=== PATIENT | male | born 1965 | race Caucasian/White ===

== ENCOUNTER 2024-11-01 11:09 | Inpatient (IN) | payer MEDICARE, OTHER ==
[2024-11-01] MEDS ORDERED: Iopamidol-370 76% 500 ML MDV (1 ML CHARGE) ONE (11:42)
[2024-11-01 11:43] LABS: #Basophils 0.04 10x3/uL (0.0-0.2); #Eosinophils 0.18 10x3/uL (0.0-0.7); #Monocytes 1.05 10x3/uL (0.11-0.59); #Neutrophils 8.30 10x3/uL (1.40-6.50); %Basophils 0.3 % (0.0-1.0); %Eosinophils 1.4 % (0.0-10.0); %Lymphocytes 25.5 % (21.0-51.0); %Monocytes 8.1 % (0.0-10.0); %Neutrophils 64.3 % (42.0-75.0); Hematocrit 43.1 % (42.0-52.0); Hemoglobin 14.2 g/dL (14.0-18.0); Mean Corpuscular Hemoglobin 29.6 pg (27.0-31.0); Mean Corpuscular Volume 90.0 fL (78.0-98.0); Platelet Count 294 10x3/uL (130-400); Red Blood Cell (RBC) Count 4.79 mill/uL (4.70-6.10); White Blood Cell (WBC) Count 12.91 10x3/uL (4.8-10.8)
[2024-11-01] MEDS ORDERED: Albuterol 2.5 MG (0.5 mL) NEB ONE (11:49)
[2024-11-01 12:03] LABS: ALT (SGPT) 19 U/L (Less than 45); AST (SGOT) 18 U/L (11-34); Albumin 3.8 g/dL (3.1-4.5); Alkaline Phosphatase 129 U/L (40-110); Anion Gap 16 mmol/L (10-20); BUN (Urea Nitrogen) 25 mg/dL (8.4-25.7); Bilirubin, Total 0.3 mg/dL (0.3-1.2); Calc. Creatinine Clearance 0 mL/min (70-130); Calcium 9.0 mg/dL (7.8-10.44); Carbon Dioxide 23 mmol/L (22-29); Chloride 108 mmol/L (98-107); Globulin 2.7 g/dL (2.4-3.5); Glucose 97 mg/dL (70-105); Potassium 4.2 mmol/L (3.5-5.1); Sodium 143 mmol/L (136-145)
[2024-11-01] MEDS ORDERED: Enoxaparin 30 MG (0.3 mL) SYRINGE ONE (13:13)
[2024-11-01] MEDS ORDERED: Enoxaparin 100 MG (1 mL) SYRINGE ONE (13:16)
[2024-11-01] MEDS ORDERED: Nitroglycerin 0.4 MG TAB (25 Tab Bottle) SL PRN (13:36)
[2024-11-01] MEDS ORDERED: Nitroglycerin 2% Ointment 1 INCH/1 GM Packet ONE (15:06)
[2024-11-01] MEDS: Nitroglycerin 2% Ointment 1 INCH/1 GM Packet TOP SCH ×2 (15:14→20:53)
[2024-11-01] MEDS: Gabapentin 400 MG CAP PO SCH (22:15)
[2024-11-01] MEDS: Acetaminophen 325 MG TAB PO PRN (22:15)
[2024-11-02 04:38] LABS: #Basophils 0.03 10x3/uL (0.0-0.2); #Eosinophils Less than 0.03 10x3/uL (0.0-0.7); #Monocytes 0.96 10x3/uL (0.11-0.59); #Neutrophils 11.43 10x3/uL (1.40-6.50); %Basophils 0.2 % (0.0-1.0); %Eosinophils 0.1 % (0.0-10.0); %Lymphocytes 11.8 % (21.0-51.0); %Monocytes 6.8 % (0.0-10.0); %Neutrophils 80.5 % (42.0-75.0); Hematocrit 42.3 % (42.0-52.0); Hemoglobin 13.3 g/dL (14.0-18.0); Mean Corpuscular Hemoglobin 29.5 pg (27.0-31.0); Mean Corpuscular Volume 93.8 fL (78.0-98.0); Platelet Count 281 10x3/uL (130-400); Red Blood Cell (RBC) Count 4.51 mill/uL (4.70-6.10); White Blood Cell (WBC) Count 14.18 10x3/uL (4.8-10.8)
[2024-11-02 04:59] LABS: Anion Gap 13 mmol/L (10-20); BUN (Urea Nitrogen) 27 mg/dL (8.4-25.7); Calc. Creatinine Clearance 59 mL/min (70-130); Calcium 9.2 mg/dL (7.8-10.44); Carbon Dioxide 25 mmol/L (22-29); Cardiac Risk 3.5 (Less than 4.5); Chloride 109 mmol/L (98-107); Cholesterol 174 mg/dl (< 200 Desired); Glucose 111 mg/dL (70-105); HDL Cholesterol 50 mg/dL (>60 Neg Risk); LDL Cholesterol, Calculated 88 mg/dL; Potassium 4.7 mmol/L (3.5-5.1); Sodium 142 mmol/L (136-145); Triglycerides 180 mg/dL (Less than 150)
[2024-11-02] MEDS: Aspirin 81 mg Enteric Coated Tablet PO SCH (05:48)
[2024-11-02] MEDS ORDERED: Communication Order-Pharmacy FS SCH (06:00)
[2024-11-02] MEDS ORDERED: PHENYLEPHRINE-NS 100 MCG/ML 10 ML SYRINGE ONE (06:15)
[2024-11-02] MEDS ORDERED: hydrALAZINE 20 MG/ML VIAL ONE (06:15)
[2024-11-02] MEDS ORDERED: Heparin 10,000 UNITS/ 10 ML VIAL ONE (06:15)
[2024-11-02] MEDS ORDERED: Adenosine 6 mg (2 mL) VIAL ONE (06:15)
[2024-11-02] MEDS ORDERED: Lidocaine 1% (PF) 30 ML VIAL ONE (06:15)
[2024-11-02] MEDS ORDERED: Nitroglycerin 50 MG/250 ML BOT 0 ML ONE (06:15)
[2024-11-02] MEDS ORDERED: EPINEPHrine 1 MG/10 ML Abboject SYRINGE ONE (06:15)
[2024-11-02] MEDS ORDERED: Metoprolol Tartrate 5 MG (5 mL) VIAL ONE ×2 (07:22→07:55)
[2024-11-02] MEDS ORDERED: Nitroglycerin 2% Ointment 1 INCH/1 GM Packet ONE (07:55)
[2024-11-02] MEDS ORDERED: Nitroglycerin 0.4 MG TAB (25 Tab Bottle) SL PRN (08:13)
[2024-11-02] MEDS ORDERED: Iopamidol 370 76% 100 ML VIAL ONE (10:16)
[2024-11-02] MEDS: HYDROcodone/Acetaminophen 5/325 mg Tablet PO PRN (12:28)
[2024-11-02] MEDS: Melatonin 3 MG TAB PO PRN (20:32)
[2024-11-02] MEDS: Gabapentin 300 MG CAP PO SCH (20:32)
[2024-11-03 04:43] LABS: #Basophils 0.07 10x3/uL (0.0-0.2); #Eosinophils 0.15 10x3/uL (0.0-0.7); #Monocytes 0.86 10x3/uL (0.11-0.59); #Neutrophils 9.36 10x3/uL (1.40-6.50); %Basophils 0.5 % (0.0-1.0); %Eosinophils 1.1 % (0.0-10.0); %Lymphocytes 23.3 % (21.0-51.0); %Monocytes 6.3 % (0.0-10.0); %Neutrophils 68.4 % (42.0-75.0); Hematocrit 43.9 % (42.0-52.0); Hemoglobin 13.6 g/dL (14.0-18.0); Mean Corpuscular Hemoglobin 29.1 pg (27.0-31.0); Mean Corpuscular Volume 94.0 fL (78.0-98.0); Platelet Count 284 10x3/uL (130-400); Red Blood Cell (RBC) Count 4.67 mill/uL (4.70-6.10); White Blood Cell (WBC) Count 13.69 10x3/uL (4.8-10.8)
[2024-11-03 05:07] LABS: Anion Gap 11 mmol/L (10-20); BUN (Urea Nitrogen) 24 mg/dL (8.4-25.7); Calc. Creatinine Clearance 68 mL/min (70-130); Calcium 8.6 mg/dL (7.8-10.44); Carbon Dioxide 26 mmol/L (22-29); Chloride 107 mmol/L (98-107); Glucose 95 mg/dL (70-105); Potassium 4.6 mmol/L (3.5-5.1); Sodium 139 mmol/L (136-145)
[2024-11-03] MEDS: Enoxaparin 40 MG (0.4 mL) SYRINGE SC SCH (14:10)
[2024-11-03] MEDS: HYDROcodone/Acetaminophen 5/325 mg Tablet PO PRN (21:20)
[2024-11-03] MEDS: Senokot S 8.6-50 MG TAB PO PRN (21:21)
[2024-11-04 04:31] LABS: #Basophils 0.05 10x3/uL (0.0-0.2); #Eosinophils 0.18 10x3/uL (0.0-0.7); #Monocytes 1.10 10x3/uL (0.11-0.59); #Neutrophils 6.28 10x3/uL (1.40-6.50); %Basophils 0.5 % (0.0-1.0); %Eosinophils 1.6 % (0.0-10.0); %Lymphocytes 30.4 % (21.0-51.0); %Monocytes 10.0 % (0.0-10.0); %Neutrophils 57.0 % (42.0-75.0); Hematocrit 43.7 % (42.0-52.0); Hemoglobin 13.5 g/dL (14.0-18.0); Mean Corpuscular Hemoglobin 29.2 pg (27.0-31.0); Mean Corpuscular Volume 94.6 fL (78.0-98.0); Platelet Count 262 10x3/uL (130-400); Red Blood Cell (RBC) Count 4.62 mill/uL (4.70-6.10); White Blood Cell (WBC) Count 11.01 10x3/uL (4.8-10.8)
[2024-11-04 04:48] LABS: Anion Gap 10 mmol/L (10-20); BUN (Urea Nitrogen) 26 mg/dL (8.4-25.7); Calc. Creatinine Clearance 66 mL/min (70-130); Calcium 8.6 mg/dL (7.8-10.44); Carbon Dioxide 26 mmol/L (22-29); Chloride 108 mmol/L (98-107); Glucose 97 mg/dL (70-105); Potassium 4.4 mmol/L (3.5-5.1); Sodium 140 mmol/L (136-145)
[2024-11-04] MEDS ORDERED: PHENYLEPHRINE-NS 100 MCG/ML 10 ML SYRINGE ONE ×4 (06:35→12:17)
[2024-11-04] MEDS ORDERED: Heparin 10,000 UNITS/1 ML VIAL 30,000 UNITS in Sodium Chloride 0.9% 1,000 ML FS SCH (06:45)
[2024-11-04] MEDS ORDERED: PROPOFOL 20 ML ONE (06:45)
[2024-11-04] MEDS ORDERED: Lidocaine 1% PF 5 ML VIAL ONE (06:46)
[2024-11-04] MEDS ORDERED: Rocuronium Bromide 10 MG/ML (10ML VIAL) ONE ×3 (06:51→10:42)
[2024-11-04] MEDS ORDERED: CEFAZOLIN 2 GM VIAL ONE (06:56)
[2024-11-04] MEDS ORDERED: Cardioplegic Soln 1,000 ML BAG ONE (07:30)
[2024-11-04] MEDS ORDERED: Thrombin 5000 UNITS/5 ML VIAL ONE (07:30)
[2024-11-04] MEDS ORDERED: Sodium Bicarb 50 MEQ/50 ML Abboject 8.4% SYRINGE ONE (07:30)
[2024-11-04] MEDS ORDERED: Calcium Chloride 1 GM/10 ML Abboject SYRINGE ONE ×2 (07:30→11:16)
[2024-11-04] MEDS ORDERED: Heparin 30,000 units/30 ml VIAL ONE (07:30)
[2024-11-04] MEDS ORDERED: Heparin 5,000 UNITS/ML VIAL ONE (07:30)
[2024-11-04] MEDS ORDERED: NOREPINEPHRINE 8 MG/250 ML-D5W 250 ML ONE (07:55)
[2024-11-04] MEDS ORDERED: Heparin 10,000 UNITS/ 10 ML VIAL ONE (08:11)
[2024-11-04] MEDS ORDERED: CEFAZOLIN 1 GM VIAL ONE (11:24)
[2024-11-04] MEDS ORDERED: NOREPINEPHRINE 8 MG/250 ML-D5W 250 ML IVPB PRN (11:58)
[2024-11-04] MEDS ORDERED: Bisacodyl 10 MG SUPP PR PRN (11:58)
[2024-11-04] MEDS ORDERED: Guaifenesin DM 100-10/5 ML UDCUP PO PRN (11:58)
[2024-11-04] MEDS ORDERED: Mag-Al 1200 mg/1200 mg/30 ML UDCUP PO PRN (11:58)
[2024-11-04] MEDS ORDERED: Potassium Chloride 20 MEQ (100 mL) BAG IVPB PRN (11:58)
[2024-11-04] MEDS ORDERED: Phenylephrine 40 MG/NS 250 ML 250 ML IVPB PRN (11:58)
[2024-11-04] MEDS ORDERED: niCARdipine 25 MG in Sodium Chloride 0.9% 250 ML 250 ML IVPB PRN (11:58)
[2024-11-04] MEDS ORDERED: Magnesium 2 GM/50 ML(in water) 2 GM in Premix 1 BAG IVPB SCH (12:00)
[2024-11-04] MEDS ORDERED: Electrolyte Replacement Protocol 1 EACH FS SCH (12:15)
[2024-11-04] MEDS ORDERED: INSULIN REGULAR IN 0.9 % NACL 100 UNITS in Premix 1 BAG IVPB SCH (12:30)
[2024-11-04] MEDS ORDERED: Glucagon 1 MG/ML KIT SC PRN (12:30)
[2024-11-04 12:33] LABS: Actual Bicarbonate (HCO3a) 23.8 mEq/L (22-28); Base Excess (BEa) -4.4 mEq/L (-2.0 to +3.0); CO2 Tension 58.5 mmHg (35.0-45.0); Calcium, Ionized (arterial) 1.32 mmol/L (1.12-1.30); Hematocrit-ABG 37 % (42.0-52.0); Hemoglobin (Hb) 12.6 g/dL (14.0-18.0); O2 Tension (PaO2), arterial 93.2 mmHg (80.0-100.0); Potassium - ABG Lab 4.94 mmol/L (3.70-5.30); pH, Arterial 7.228 (7.35-7.45)
[2024-11-04 12:35] LABS: Puncture Site Arterial Line
[2024-11-04 12:36] LABS: ALV-art Gradient 118.875 mmHg (0-20)
[2024-11-04] MEDS: Post-Op Insulin Drip Protocol IVPB ONE (12:40)
[2024-11-04] MEDS: NS 0.9% w/ 20 MEQ KCL 1,000 ML IV SCH (12:49)
[2024-11-04 12:50] LABS: Hematocrit 37.6 % (42.0-52.0); Hemoglobin 11.4 g/dL (14.0-18.0); Mean Corpuscular Hemoglobin 29.5 pg (27.0-31.0); Mean Corpuscular Volume 97.4 fL (78.0-98.0); Platelet Count 208 10x3/uL (130-400); Red Blood Cell (RBC) Count 3.86 mill/uL (4.70-6.10); White Blood Cell (WBC) Count 26.92 10x3/uL (4.8-10.8)
[2024-11-04] MEDS: Magnesium 2 GM/50 ML(in water) 2 GM in Premix 1 BAG IVPB SCH (12:50)
[2024-11-04] MEDS: Albumin 5% 12.5 GM (250 mL) BOT IVPB PRN ×2 (12:51→13:11)
[2024-11-04 12:58] LABS: INR-International Normal Ratio 1.2; Prothrombin Time 15.3 sec (12.0-14.7)
[2024-11-04 12:59] LABS: PTT 47.0 sec (22.9-36.1)
[2024-11-04 13:00] LABS: Anion Gap 11 mmol/L (10-20); BUN (Urea Nitrogen) 24 mg/dL (8.4-25.7); Calc. Creatinine Clearance 63 mL/min (70-130); Calcium 8.7 mg/dL (7.8-10.44); Carbon Dioxide 20 mmol/L (22-29); Chloride 114 mmol/L (98-107); Glucose 141 mg/dL (70-105); Potassium 5.1 mmol/L (3.5-5.1); Sodium 140 mmol/L (136-145)
[2024-11-04 13:14] LABS: Platelet Adequacy Comment Platelets Normal
[2024-11-04 15:19] LABS: Actual Bicarbonate (HCO3a) 20.4 mEq/L (22-28); Base Excess (BEa) -4.7 mEq/L (-2.0 to +3.0); CO2 Tension 37.8 mmHg (35.0-45.0); Calcium, Ionized (arterial) 1.19 mmol/L (1.12-1.30); Hematocrit-ABG 33 % (42.0-52.0); Hemoglobin (Hb) 11.1 g/dL (14.0-18.0); O2 Tension (PaO2), arterial 106.4 mmHg (80.0-100.0); Potassium - ABG Lab 5.35 mmol/L (3.70-5.30); pH, Arterial 7.350 (7.35-7.45)
[2024-11-04 15:30] LABS: ALV-art Gradient 131.550 mmHg (0-20); Puncture Site Arterial Line
[2024-11-04 17:57] LABS: Hematocrit 34.2 % (42.0-52.0); Hemoglobin 10.3 g/dL (14.0-18.0)
[2024-11-04 18:09] LABS: Potassium 5.5 mmol/L (3.5-5.1)
[2024-11-04 18:26] LABS: Hematocrit 34.7 % (42.0-52.0); Hemoglobin 10.5 g/dL (14.0-18.0); Platelet Count 153 10x3/uL (130-400)
[2024-11-04] MEDS: Famotidine/PF 20 mg/2ml Vial SLOW IVP SCH (20:05)
[2024-11-04] MEDS: Transdermal Patch Removal TOP SCH (20:21)
[2024-11-05 04:17] LABS: #Basophils Less than 0.03 10x3/uL (0.0-0.2); #Eosinophils 0.06 10x3/uL (0.0-0.7); #Monocytes 1.20 10x3/uL (0.11-0.59); #Neutrophils 11.23 10x3/uL (1.40-6.50); %Basophils 0.1 % (0.0-1.0); %Eosinophils 0.4 % (0.0-10.0); %Lymphocytes 10.5 % (21.0-51.0); %Monocytes 8.5 % (0.0-10.0); %Neutrophils 80.0 % (42.0-75.0); Hematocrit 34.5 % (42.0-52.0); Hemoglobin 10.6 g/dL (14.0-18.0); Mean Corpuscular Hemoglobin 30.0 pg (27.0-31.0); Mean Corpuscular Volume 97.7 fL (78.0-98.0); Platelet Count 164 10x3/uL (130-400); Red Blood Cell (RBC) Count 3.53 mill/uL (4.70-6.10); White Blood Cell (WBC) Count 14.06 10x3/uL (4.8-10.8)
[2024-11-05 04:32] LABS: Anion Gap 12 mmol/L (10-20); BUN (Urea Nitrogen) 21 mg/dL (8.4-25.7); Calc. Creatinine Clearance 66 mL/min (70-130); Calcium 8.1 mg/dL (7.8-10.44); Carbon Dioxide 22 mmol/L (22-29); Chloride 109 mmol/L (98-107); Glucose 110 mg/dL (70-105); Magnesium 2.3 mg/dL (1.6-2.6); Potassium 4.7 mmol/L (3.5-5.1); Sodium 138 mmol/L (136-145)
[2024-11-05] MEDS: Aspirin 325 MG TAB PO SCH (08:11)
[2024-11-05] MEDS: Gabapentin 300 MG CAP PO SCH (08:11)
[2024-11-05] MEDS: Magnesium 2 GM/50 ML(in water) 2 GM in Premix 1 BAG IVPB SCH (08:12)
[2024-11-05] MEDS: Heparin 5,000 UNITS/ML VIAL SC SCH (08:12)
[2024-11-05] MEDS: Senokot S 8.6-50 MG TAB PO SCH (08:13)
[2024-11-05] MEDS: Losartan 25 MG TAB PO SCH (10:37)
[2024-11-05] MEDS ORDERED: HYDROcodone/Acetaminophen 5/325 mg Tablet PO PRN (10:58)
[2024-11-05] MEDS ORDERED: Insulin Glargine 30 UNITS/0.3 ML VIAL SC PRN (12:25)
[2024-11-05] MEDS ORDERED: Artificial Tear Ophth Sol 15 ML BOT EA EYE PRN (13:54)
[2024-11-05] MEDS ORDERED: Mineral Oil ENEMA PR PRN (13:54)
[2024-11-05] MEDS: HYDROcodone/Acetaminophen 5/325 mg Tablet PO PRN (16:43)
[2024-11-06 05:01] LABS: Magnesium 2.3 mg/dL (1.6-2.6)
[2024-11-06] MEDS: Amiodarone 150 MG, Admixture Fee 1 EACH in Dextrose 5% in Water 100 ML IVPB SCH (05:54)
[2024-11-06 07:59] LABS: Hematocrit 32.5 % (42.0-52.0); Hemoglobin 10.1 g/dL (14.0-18.0); Mean Corpuscular Hemoglobin 29.9 pg (27.0-31.0); Mean Corpuscular Volume 96.2 fL (78.0-98.0); Platelet Count 159 10x3/uL (130-400); Red Blood Cell (RBC) Count 3.38 mill/uL (4.70-6.10); White Blood Cell (WBC) Count 16.52 10x3/uL (4.8-10.8)
[2024-11-06 08:13] LABS: Anion Gap 7 mmol/L (10-20); BUN (Urea Nitrogen) 25 mg/dL (8.4-25.7); Calc. Creatinine Clearance 78 mL/min (70-130); Calcium 8.1 mg/dL (7.8-10.44); Carbon Dioxide 21 mmol/L (22-29); Chloride 113 mmol/L (98-107); Glucose 139 mg/dL (70-105); Potassium 4.4 mmol/L (3.5-5.1); Sodium 137 mmol/L (136-145)
[2024-11-06] MEDS: Magnesium 2 GM/50 ML(in water) 2 GM in Premix 1 BAG IVPB SCH (08:48)
[2024-11-06] MEDS: Metoprolol Succinate XL 50 MG ER.TAB PO SCH (08:49)
[2024-11-06] MEDS ORDERED: Metoprolol Succinate XL 50 MG ER.TAB PO SCH (09:00)
[2024-11-06] MEDS ORDERED: Furosemide 20 MG TAB PO SCH (10:03)
[2024-11-06 12:30] LABS: Anion Gap 12 mmol/L (10-20); BUN (Urea Nitrogen) 23 mg/dL (8.4-25.7); Calc. Creatinine Clearance 65 mL/min (70-130); Calcium 8.6 mg/dL (7.8-10.44); Carbon Dioxide 23 mmol/L (22-29); Chloride 110 mmol/L (98-107); Glucose 143 mg/dL (70-105); Magnesium 3.2 mg/dL (1.6-2.6); Potassium 5.0 mmol/L (3.5-5.1); Sodium 140 mmol/L (136-145)
[2024-11-06] MEDS: Amiodarone 200 MG TAB PO SCH (21:20)
[2024-11-06] MEDS: Dextrose 50% Abboject 50 ML SYRINGE SLOW IVP PRN (22:03)
[2024-11-07 04:27] LABS: Hematocrit 31.3 % (42.0-52.0); Hemoglobin 9.4 g/dL (14.0-18.0); Mean Corpuscular Hemoglobin 29.6 pg (27.0-31.0); Mean Corpuscular Volume 98.4 fL (78.0-98.0); Platelet Count 146 10x3/uL (130-400); Red Blood Cell (RBC) Count 3.18 mill/uL (4.70-6.10); White Blood Cell (WBC) Count 19.28 10x3/uL (4.8-10.8)
[2024-11-07 07:54] LABS: Anion Gap 17 mmol/L (10-20); BUN (Urea Nitrogen) 40 mg/dL (8.4-25.7); Calc. Creatinine Clearance 28 mL/min (70-130); Calcium 7.8 mg/dL (7.8-10.44); Carbon Dioxide 19 mmol/L (22-29); Chloride 105 mmol/L (98-107); Glucose 99 mg/dL (70-105); Magnesium 3.1 mg/dL (1.6-2.6); Potassium 6.8 mmol/L (3.5-5.1); Sodium 134 mmol/L (136-145)
[2024-11-07 08:22] LABS: ALT (SGPT) 8646 U/L (Less than 45)
[2024-11-07 08:29] LABS: AST (SGOT) Greater than 4001 U/L (11-34)
[2024-11-07 08:30] LABS: Albumin 2.4 g/dL (3.1-4.5); Alkaline Phosphatase 171 U/L (40-110); Bilirubin, Direct 0.7 mg/dL (0.1-0.3); Bilirubin, Total 1.1 mg/dL (0.3-1.2)
[2024-11-07] MEDS ORDERED: Amoxicillin/Potassium Clav 500 MG TAB PO SCH (09:00)
[2024-11-07] MEDS: Bisacodyl 10 MG SUPP PR SCH (10:10)
[2024-11-07] MEDS: Sodium Polystyrene Sulfonate 15 GM (60 mL) BOT PO SCH (10:20)
[2024-11-07] MEDS: Dextrose 50% Abboject 50 ML SYRINGE SLOW IVP SCH (10:43)
[2024-11-07] MEDS: Ondansetron PF 4 MG/2 ML Vial IVP PRN (10:52)
[2024-11-07 14:09] LABS: #Basophils 0.03 10x3/uL (0.0-0.2); #Eosinophils 0.03 10x3/uL (0.0-0.7); #Monocytes 0.67 10x3/uL (0.11-0.59); #Neutrophils 10.83 10x3/uL (1.40-6.50); %Basophils 0.2 % (0.0-1.0); %Eosinophils 0.2 % (0.0-10.0); %Lymphocytes 13.3 % (21.0-51.0); %Monocytes 4.9 % (0.0-10.0); %Neutrophils 79.9 % (42.0-75.0); Hematocrit 30.2 % (42.0-52.0); Hemoglobin 9.2 g/dL (14.0-18.0); Mean Corpuscular Hemoglobin 29.8 pg (27.0-31.0); Mean Corpuscular Volume 97.7 fL (78.0-98.0); Platelet Count 134 10x3/uL (130-400); Red Blood Cell (RBC) Count 3.09 mill/uL (4.70-6.10); White Blood Cell (WBC) Count 13.58 10x3/uL (4.8-10.8)
[2024-11-07 14:34] LABS: Albumin 2.5 g/dL (3.1-4.5); Alkaline Phosphatase 227 U/L (40-110); Anion Gap 17 mmol/L (10-20); BUN (Urea Nitrogen) 46 mg/dL (8.4-25.7); Bilirubin, Total 1.0 mg/dL (0.3-1.2); Calc. Creatinine Clearance 22 mL/min (70-130); Calcium 7.5 mg/dL (7.8-10.44); Carbon Dioxide 19 mmol/L (22-29); Chloride 104 mmol/L (98-107); Globulin 2.9 g/dL (2.4-3.5); Glucose 138 mg/dL (70-105); Magnesium 3.3 mg/dL (1.6-2.6); Potassium 5.5 mmol/L (3.5-5.1); Sodium 134 mmol/L (136-145)
[2024-11-07 15:38] LABS: Bacteria/HPF 4+ HPF (None Seen); Glucose, Urine (Dipstick) 50 mg/dL (Negative); Leukocyte 500 Leu/uL (Negative); Protein, Urine (Dipstick) 100 mg/dL (Neg-Trace); RBC/HPF Greater than 50 HPF (0-3); Specific Gravity, Urine 1.023 (1.002-1.036); WBC/HPF Greater than 50 HPF (0-3)
[2024-11-07] MEDS: Albumin 25% 25 GM (100 mL) BOT IVPB SCH (16:02)
[2024-11-07 16:22] LABS: Sodium, Urine 27.0 mmol/L (Not Available); Urea Nitrogen, Random Urine 139.0 mg/dl
[2024-11-07 16:34] LABS: ALT (SGPT) 8637 U/L (Less than 45)
[2024-11-07 16:52] LABS: Protein, Urine Random Quant 309.0 mg/dL (1-14)
[2024-11-07] MEDS: Mineral Oil ENEMA PR SCH (18:16)
[2024-11-07 19:27] LABS: #Basophils 0.03 10x3/uL (0.0-0.2); #Eosinophils Less than 0.03 10x3/uL (0.0-0.7); #Monocytes 0.67 10x3/uL (0.11-0.59); #Neutrophils 10.85 10x3/uL (1.40-6.50); %Basophils 0.2 % (0.0-1.0); %Eosinophils 0.1 % (0.0-10.0); %Lymphocytes 5.0 % (21.0-51.0); %Monocytes 5.4 % (0.0-10.0); %Neutrophils 88.2 % (42.0-75.0); Hematocrit 29.6 % (42.0-52.0); Hemoglobin 9.1 g/dL (14.0-18.0); Mean Corpuscular Hemoglobin 29.8 pg (27.0-31.0); Mean Corpuscular Volume 97.0 fL (78.0-98.0); Platelet Count 120 10x3/uL (130-400); Red Blood Cell (RBC) Count 3.05 mill/uL (4.70-6.10); White Blood Cell (WBC) Count 12.32 10x3/uL (4.8-10.8)
[2024-11-07 20:25] LABS: Anion Gap 17 mmol/L (10-20); BUN (Urea Nitrogen) 49 mg/dL (8.4-25.7); Calc. Creatinine Clearance 21 mL/min (70-130); Calcium 7.4 mg/dL (7.8-10.44); Carbon Dioxide 19 mmol/L (22-29); Chloride 102 mmol/L (98-107); Glucose 147 mg/dL (70-105); Potassium 5.2 mmol/L (3.5-5.1); Sodium 133 mmol/L (136-145)
[2024-11-07 20:33] LABS: Albumin 2.9 g/dL (3.1-4.5)
[2024-11-07 20:35] LABS: Globulin 2.4 g/dL (2.4-3.5)
[2024-11-07 20:37] LABS: Alkaline Phosphatase 255 U/L (40-110); Bilirubin, Total 1.2 mg/dL (0.3-1.2)
[2024-11-07 21:08] LABS: ALT (SGPT) 7525 U/L (Less than 45)
[2024-11-07] MEDS: Mupirocin 1 GM TUBE TP SCH (21:10)
[2024-11-07] MEDS: Hydrocortisone/Pramoxine (Proctofoam HC) 10 GM BOX TOP SCH (22:30)
[2024-11-08] MEDS: Milk Of Magnesia 30 ML UDCUP PO PRN (02:25)
[2024-11-08 06:00] LABS: Hematocrit 25.8 % (42.0-52.0); Hemoglobin 8.1 g/dL (14.0-18.0); Mean Corpuscular Hemoglobin 29.3 pg (27.0-31.0); Mean Corpuscular Volume 93.5 fL (78.0-98.0); Platelet Count 103 10x3/uL (130-400); Red Blood Cell (RBC) Count 2.76 mill/uL (4.70-6.10); White Blood Cell (WBC) Count 11.19 10x3/uL (4.8-10.8)
[2024-11-08 06:30] LABS: AST (SGOT) Greater than 4001 U/L (11-34); Albumin 3.0 g/dL (3.1-4.5); Alkaline Phosphatase 282 U/L (40-110); Anion Gap 17 mmol/L (10-20); BUN (Urea Nitrogen) 61 mg/dL (8.4-25.7); Bilirubin, Total 1.3 mg/dL (0.3-1.2); Calc. Creatinine Clearance 18 mL/min (70-130); Calcium 7.1 mg/dL (7.8-10.44); Carbon Dioxide 20 mmol/L (22-29); Chloride 101 mmol/L (98-107); Globulin 2.3 g/dL (2.4-3.5); Glucose 202 mg/dL (70-105); Magnesium 2.8 mg/dL (1.6-2.6); Potassium 4.9 mmol/L (3.5-5.1); Sodium 133 mmol/L (136-145)
[2024-11-08 06:42] LABS: ALT (SGPT) 5976 U/L (Less than 45)
[2024-11-08] MEDS: Famotidine/PF 20 mg/2ml Vial SLOW IVP SCH (08:28)
[2024-11-08] MEDS: Hydrocortisone/Pramoxine (Proctofoam HC) 10 GM BOX TOP SCH (11:21)
[2024-11-08 12:30] LABS: #Basophils Less than 0.03 10x3/uL (0.0-0.2); #Eosinophils Less than 0.03 10x3/uL (0.0-0.7); #Monocytes 0.64 10x3/uL (0.11-0.59); #Neutrophils 10.45 10x3/uL (1.40-6.50); %Basophils 0.1 % (0.0-1.0); %Eosinophils 0.0 % (0.0-10.0); %Lymphocytes 6.5 % (21.0-51.0); %Monocytes 5.3 % (0.0-10.0); %Neutrophils 86.6 % (42.0-75.0); Hematocrit 25.2 % (42.0-52.0); Hemoglobin 8.0 g/dL (14.0-18.0); Mean Corpuscular Hemoglobin 29.5 pg (27.0-31.0); Mean Corpuscular Volume 93.0 fL (78.0-98.0); Platelet Count 103 10x3/uL (130-400); Red Blood Cell (RBC) Count 2.71 mill/uL (4.70-6.10); White Blood Cell (WBC) Count 12.07 10x3/uL (4.8-10.8)
[2024-11-08 12:53] LABS: AST (SGOT) Greater than 4001 U/L (11-34); Albumin 2.8 g/dL (3.1-4.5); Alkaline Phosphatase 288 U/L (40-110); Anion Gap 16 mmol/L (10-20); BUN (Urea Nitrogen) 69 mg/dL (8.4-25.7); Bilirubin, Total 1.2 mg/dL (0.3-1.2); Calc. Creatinine Clearance 17 mL/min (70-130); Calcium 7.1 mg/dL (7.8-10.44); Carbon Dioxide 22 mmol/L (22-29); Chloride 97 mmol/L (98-107); Globulin 2.4 g/dL (2.4-3.5); Glucose 179 mg/dL (70-105); Potassium 4.4 mmol/L (3.5-5.1); Sodium 131 mmol/L (136-145)
[2024-11-08 12:58] LABS: ALT (SGPT) 5005 U/L (Less than 45)
[2024-11-08] MEDS: Pantoprazole 40 MG DR.TAB PO SCH (14:42)
[2024-11-09 03:48] LABS: #Basophils Less than 0.03 10x3/uL (0.0-0.2); #Eosinophils Less than 0.03 10x3/uL (0.0-0.7); #Monocytes 1.10 10x3/uL (0.11-0.59); #Neutrophils 10.47 10x3/uL (1.40-6.50); %Basophils 0.1 % (0.0-1.0); %Eosinophils 0.0 % (0.0-10.0); %Lymphocytes 6.5 % (21.0-51.0); %Monocytes 8.7 % (0.0-10.0); %Neutrophils 83.2 % (42.0-75.0); Hematocrit 25.8 % (42.0-52.0); Hemoglobin 8.2 g/dL (14.0-18.0); Mean Corpuscular Hemoglobin 29.3 pg (27.0-31.0); Mean Corpuscular Volume 92.1 fL (78.0-98.0); Platelet Count 108 10x3/uL (130-400); Red Blood Cell (RBC) Count 2.80 mill/uL (4.70-6.10); White Blood Cell (WBC) Count 12.59 10x3/uL (4.8-10.8)
[2024-11-09 04:07] LABS: Anion Gap 18 mmol/L (10-20); BUN (Urea Nitrogen) 81 mg/dL (8.4-25.7); Calc. Creatinine Clearance 14 mL/min (70-130); Calcium 6.9 mg/dL (7.8-10.44); Carbon Dioxide 24 mmol/L (22-29); Chloride 95 mmol/L (98-107); Glucose 122 mg/dL (70-105); Magnesium 3.7 mg/dL (1.6-2.6); Potassium 4.4 mmol/L (3.5-5.1); Sodium 133 mmol/L (136-145)
[2024-11-09] MEDS ORDERED: Famotidine 20 MG TAB PO SCH (09:00)
[2024-11-09] MEDS: Furosemide 100 MG (10 mL) VIAL SLOW IVP SCH (10:43)
[2024-11-09 16:39] LABS: HBSAB Concentration Less than 8.00 mIU/mL; Hep B Core Total Ab NONREACTIVE (NonReactive); Hep B Core Total Index 0.04 S/CO (0-0.79); Hep B Surf Ag NONREACTIVE S/CO (NonReactive); Hep C IgG Ab NONREACTIVE S/CO (NonReactive); Hep C Index 0.06 S/CO (0-0.79)
[2024-11-09 19:05] LABS: Albumin 2.7 g/dL (3.1-4.5); Anion Gap 19 mmol/L (10-20); BUN (Urea Nitrogen) 76 mg/dL (8.4-25.7); BUN/Creatinine Ratio 11.82; Calc. Creatinine Clearance 16 mL/min (70-130); Calcium 7.5 mg/dL (7.8-10.44); Carbon Dioxide 24 mmol/L (22-29); Chloride 97 mmol/L (98-107); Glucose 92 mg/dL (70-105); Potassium 4.5 mmol/L (3.5-5.1); Sodium 135 mmol/L (136-145)
[2024-11-09] MEDS: Melatonin 3 MG TAB PO PRN (21:20)
[2024-11-10] MEDS: hydrALAZINE 20 MG/ML VIAL SLOW IVP PRN (00:13)
[2024-11-10 04:33] LABS: #Basophils Less than 0.03 10x3/uL (0.0-0.2); #Eosinophils 0.05 10x3/uL (0.0-0.7); #Monocytes 1.36 10x3/uL (0.11-0.59); #Neutrophils 9.21 10x3/uL (1.40-6.50); %Basophils 0.1 % (0.0-1.0); %Eosinophils 0.4 % (0.0-10.0); %Lymphocytes 8.1 % (21.0-51.0); %Monocytes 11.6 % (0.0-10.0); %Neutrophils 78.9 % (42.0-75.0); Hematocrit 26.3 % (42.0-52.0); Hemoglobin 8.4 g/dL (14.0-18.0); Mean Corpuscular Hemoglobin 29.6 pg (27.0-31.0); Mean Corpuscular Volume 92.6 fL (78.0-98.0); Platelet Count 148 10x3/uL (130-400); Red Blood Cell (RBC) Count 2.84 mill/uL (4.70-6.10); White Blood Cell (WBC) Count 11.68 10x3/uL (4.8-10.8)
[2024-11-10 04:53] LABS: ALT (SGPT) 1954 U/L (Less than 45); AST (SGOT) 1120 U/L (11-34); Albumin 2.7 g/dL (3.1-4.5); Alkaline Phosphatase 318 U/L (40-110); Bilirubin, Direct 0.9 mg/dL (0.1-0.3); Bilirubin, Total 1.4 mg/dL (0.3-1.2)
[2024-11-10 04:54] LABS: Anion Gap 15 mmol/L (10-20); BUN (Urea Nitrogen) 69 mg/dL (8.4-25.7); Calc. Creatinine Clearance 16 mL/min (70-130); Calcium 7.7 mg/dL (7.8-10.44); Carbon Dioxide 24 mmol/L (22-29); Chloride 101 mmol/L (98-107); Glucose 84 mg/dL (70-105); Magnesium 3.2 mg/dL (1.6-2.6); Potassium 5.1 mmol/L (3.5-5.1); Sodium 135 mmol/L (136-145)
[2024-11-10] MEDS ORDERED: Glycerin Adult Supp. (12 ct jar) PR PRN (08:19)
[2024-11-10] MEDS ORDERED: Heparin 10,000 UNITS/ 10 ML VIAL CATH SCH (13:45)
[2024-11-10] MEDS: Heparin 10,000 UNITS/ 10 ML VIAL CATH SCH (14:18)
[2024-11-10 14:53] LABS: Actual Bicarbonate (HCO3a) 24.9 mEq/L (22-28); Base Excess (BEa) 1.1 mEq/L (-2.0 to +3.0); CO2 Tension 36.3 mmHg (35.0-45.0); Calcium, Ionized (arterial) 1.12 mmol/L (1.12-1.30); Hematocrit-ABG 28 % (42.0-52.0); Hemoglobin (Hb) 9.6 g/dL (14.0-18.0); O2 Tension (PaO2), arterial 73.7 mmHg (80.0-100.0); Potassium - ABG Lab 3.96 mmol/L (3.70-5.30); pH, Arterial 7.455 (7.35-7.45)
[2024-11-10 14:55] LABS: ALV-art Gradient 30.655 mmHg (0-20); Puncture Site Left Radial artery
[2024-11-10 14:56] LABS: ALT (SGPT) 1746 U/L (Less than 45); AST (SGOT) 750 U/L (11-34); Albumin 2.8 g/dL (3.1-4.5); Alkaline Phosphatase 323 U/L (40-110); Anion Gap 11 mmol/L (10-20); BUN (Urea Nitrogen) 45 mg/dL (8.4-25.7); Bilirubin, Total 1.6 mg/dL (0.3-1.2); Calc. Creatinine Clearance 23 mL/min (70-130); Calcium 8.4 mg/dL (7.8-10.44); Carbon Dioxide 25 mmol/L (22-29); Chloride 106 mmol/L (98-107); Globulin 2.2 g/dL (2.4-3.5); Glucose 81 mg/dL (70-105); Magnesium 2.6 mg/dL (1.6-2.6); Potassium 4.1 mmol/L (3.5-5.1); Sodium 138 mmol/L (136-145)
[2024-11-11 04:04] LABS: #Basophils Less than 0.03 10x3/uL (0.0-0.2); #Eosinophils 0.10 10x3/uL (0.0-0.7); #Monocytes 1.20 10x3/uL (0.11-0.59); #Neutrophils 9.37 10x3/uL (1.40-6.50); %Basophils 0.2 % (0.0-1.0); %Eosinophils 0.8 % (0.0-10.0); %Lymphocytes 8.8 % (21.0-51.0); %Monocytes 10.1 % (0.0-10.0); %Neutrophils 78.7 % (42.0-75.0); Hematocrit 26.1 % (42.0-52.0); Hemoglobin 8.3 g/dL (14.0-18.0); Mean Corpuscular Hemoglobin 29.6 pg (27.0-31.0); Mean Corpuscular Volume 93.2 fL (78.0-98.0); Platelet Count 163 10x3/uL (130-400); Red Blood Cell (RBC) Count 2.80 mill/uL (4.70-6.10); White Blood Cell (WBC) Count 11.91 10x3/uL (4.8-10.8)
[2024-11-11 04:25] LABS: ALT (SGPT) 1272 U/L (Less than 45); AST (SGOT) 418 U/L (11-34); Albumin 2.5 g/dL (3.1-4.5); Alkaline Phosphatase 293 U/L (40-110); Anion Gap 15 mmol/L (10-20); BUN (Urea Nitrogen) 56 mg/dL (8.4-25.7); Bilirubin, Direct 0.7 mg/dL (0.1-0.3); Bilirubin, Total 1.2 mg/dL (0.3-1.2); Calc. Creatinine Clearance 16 mL/min (70-130); Calcium 7.6 mg/dL (7.8-10.44); Carbon Dioxide 21 mmol/L (22-29); Chloride 104 mmol/L (98-107); Glucose 122 mg/dL (70-105); Potassium 4.3 mmol/L (3.5-5.1); Sodium 136 mmol/L (136-145)
[2024-11-11 13:40] LABS: Iron 33 ug/dL (65-175); Iron Binding Capacity, Total 168 mcg/dL (261-462)
[2024-11-11] MEDS: Nitroglycerin 0.4 MG TAB (25 Tab Bottle) SL PRN (21:53)
[2024-11-11] MEDS: Amiodarone 150 MG, Admixture Fee 1 EACH in Dextrose 5% in Water 100 ML IVPB SCH (21:57)
[2024-11-12 03:32] LABS: #Basophils Less than 0.03 10x3/uL (0.0-0.2); #Eosinophils 0.14 10x3/uL (0.0-0.7); #Monocytes 1.59 10x3/uL (0.11-0.59); #Neutrophils 11.71 10x3/uL (1.40-6.50); %Basophils 0.1 % (0.0-1.0); %Eosinophils 0.9 % (0.0-10.0); %Lymphocytes 8.6 % (21.0-51.0); %Monocytes 10.7 % (0.0-10.0); %Neutrophils 78.6 % (42.0-75.0); Hematocrit 28.9 % (42.0-52.0); Hemoglobin 9.1 g/dL (14.0-18.0); Mean Corpuscular Hemoglobin 29.3 pg (27.0-31.0); Mean Corpuscular Volume 92.9 fL (78.0-98.0); Platelet Count 184 10x3/uL (130-400); Red Blood Cell (RBC) Count 3.11 mill/uL (4.70-6.10); White Blood Cell (WBC) Count 14.91 10x3/uL (4.8-10.8)
[2024-11-12 03:51] LABS: ALT (SGPT) 960 U/L (Less than 45); AST (SGOT) 216 U/L (11-34); Albumin 2.7 g/dL (3.1-4.5); Alkaline Phosphatase 315 U/L (40-110); Anion Gap 17 mmol/L (10-20); BUN (Urea Nitrogen) 46 mg/dL (8.4-25.7); Bilirubin, Direct 0.9 mg/dL (0.1-0.3); Bilirubin, Total 1.6 mg/dL (0.3-1.2); Calc. Creatinine Clearance 17 mL/min (70-130); Calcium 8.3 mg/dL (7.8-10.44); Carbon Dioxide 23 mmol/L (22-29); Chloride 101 mmol/L (98-107); Glucose 96 mg/dL (70-105); Potassium 4.4 mmol/L (3.5-5.1); Sodium 137 mmol/L (136-145)
[2024-11-12 06:35] VITALS: BMI 26.7
[2024-11-12] MEDS: Sodium Ferric Gluconate 250 MG in Sodium Chloride 0.9% 250 ML 250 ML IVPB SCH (08:16)
[2024-11-12] MEDS: EPOETIN ALFA-EPBX (ESRD) 10,000 UNITS/ML VIAL SC SCH (12:20)
[2024-11-12] MEDS: Amiodarone 200 MG TAB PO SCH (14:56)
[2024-11-13 04:49] LABS: #Basophils 0.05 10x3/uL (0.0-0.2); #Eosinophils 0.22 10x3/uL (0.0-0.7); #Monocytes 1.72 10x3/uL (0.11-0.59); #Neutrophils 11.72 10x3/uL (1.40-6.50); %Basophils 0.3 % (0.0-1.0); %Eosinophils 1.4 % (0.0-10.0); %Lymphocytes 10.4 % (21.0-51.0); %Monocytes 11.0 % (0.0-10.0); %Neutrophils 74.9 % (42.0-75.0); Hematocrit 29.9 % (42.0-52.0); Hemoglobin 9.4 g/dL (14.0-18.0); Mean Corpuscular Hemoglobin 29.6 pg (27.0-31.0); Mean Corpuscular Volume 94.0 fL (78.0-98.0); Platelet Count 202 10x3/uL (130-400); Red Blood Cell (RBC) Count 3.18 mill/uL (4.70-6.10); White Blood Cell (WBC) Count 15.66 10x3/uL (4.8-10.8)
[2024-11-13 05:02] LABS: ALT (SGPT) 676 U/L (Less than 45); AST (SGOT) 123 U/L (11-34); Albumin 2.8 g/dL (3.1-4.5); Alkaline Phosphatase 277 U/L (40-110); Anion Gap 20 mmol/L (10-20); BUN (Urea Nitrogen) 68 mg/dL (8.4-25.7); Bilirubin, Direct 0.5 mg/dL (0.1-0.3); Bilirubin, Total 1.0 mg/dL (0.3-1.2); Calc. Creatinine Clearance 12 mL/min (70-130); Calcium 7.8 mg/dL (7.8-10.44); Carbon Dioxide 19 mmol/L (22-29); Chloride 100 mmol/L (98-107); Glucose 99 mg/dL (70-105); Potassium 5.1 mmol/L (3.5-5.1); Sodium 134 mmol/L (136-145)
[2024-11-13] MEDS ORDERED: Ondansetron PF 4 MG/2 ML Vial ONE ×2 (12:31→13:50)
[2024-11-13] MEDS ORDERED: Lidocaine 2% PF 100 mg/5 ml Syringe ONE (12:31)
[2024-11-13] MEDS ORDERED: fentaNYL PF 100 MCG/2 ML SYRINGE ONE (12:31)
[2024-11-13] MEDS ORDERED: PROPOFOL 20 ML ONE (12:31)
[2024-11-13] MEDS ORDERED: Etomidate 40 MG (20 mL) VIAL ONE (12:41)
[2024-11-13] MEDS ORDERED: CEFAZOLIN 1 GM VIAL ONE (13:25)
[2024-11-13] MEDS ORDERED: PHENYLEPHRINE-NS 100 MCG/ML 10 ML SYRINGE ONE (13:37)
[2024-11-14 04:51] LABS: #Basophils 0.05 10x3/uL (0.0-0.2); #Eosinophils 0.30 10x3/uL (0.0-0.7); #Monocytes 1.73 10x3/uL (0.11-0.59); #Neutrophils 11.80 10x3/uL (1.40-6.50); %Basophils 0.3 % (0.0-1.0); %Eosinophils 1.9 % (0.0-10.0); %Lymphocytes 9.9 % (21.0-51.0); %Monocytes 11.0 % (0.0-10.0); %Neutrophils 75.2 % (42.0-75.0); Hematocrit 28.9 % (42.0-52.0); Hemoglobin 9.2 g/dL (14.0-18.0); Mean Corpuscular Hemoglobin 29.6 pg (27.0-31.0); Mean Corpuscular Volume 92.9 fL (78.0-98.0); Platelet Count 204 10x3/uL (130-400); Red Blood Cell (RBC) Count 3.11 mill/uL (4.70-6.10); White Blood Cell (WBC) Count 15.70 10x3/uL (4.8-10.8)
[2024-11-14 05:03] LABS: ALT (SGPT) 364 U/L (Less than 45); AST (SGOT) 81 U/L (11-34); Albumin 2.8 g/dL (3.1-4.5); Alkaline Phosphatase 248 U/L (40-110); Anion Gap 22 mmol/L (10-20); BUN (Urea Nitrogen) 83 mg/dL (8.4-25.7); Bilirubin, Direct 0.4 mg/dL (0.1-0.3); Bilirubin, Total 0.7 mg/dL (0.3-1.2); Calc. Creatinine Clearance 10 mL/min (70-130); Calcium 7.6 mg/dL (7.8-10.44); Carbon Dioxide 21 mmol/L (22-29); Chloride 99 mmol/L (98-107); Glucose 118 mg/dL (70-105); Potassium 5.1 mmol/L (3.5-5.1); Sodium 137 mmol/L (136-145)
[2024-11-14] MEDS ORDERED: Diltiazem HCl/D5W 125 MG in Premix 1 BAG IVPB SCH (15:30)
[2024-11-14] MEDS: Tuberculin PPD 0.1 ML SYRINGE (10 TEST VIAL) I-DERMAL SCH (16:46)
[2024-11-14] MEDS: NIFEdipine XL 60 MG ER.TAB PO SCH (16:52)
[2024-11-14] MEDS: cefTRIAXone\\ROCEPHIN 1 GM in Sodium Chloride 0.9% 100 ML IVPB SCH (16:54)
[2024-11-14 22:16] LABS: Bacteria/HPF None Seen HPF (None Seen); CAUTI Indications for Culture Dysuria,urgency,freq; Glucose, Urine (Dipstick) Normal (Negative); Leukocyte Negative Leu/uL (Negative); Protein, Urine (Dipstick) Negative (Neg-Trace); RBC/HPF 0-3 HPF (0-3); Specific Gravity, Urine 1.007 (1.002-1.036); WBC/HPF 0-3 HPF (0-3)
[2024-11-14 22:23] LABS: Urine Culture Reflex No No
[2024-11-15 05:33] LABS: #Basophils 0.05 10x3/uL (0.0-0.2); #Eosinophils 0.27 10x3/uL (0.0-0.7); #Monocytes 1.80 10x3/uL (0.11-0.59); #Neutrophils 11.84 10x3/uL (1.40-6.50); %Basophils 0.3 % (0.0-1.0); %Eosinophils 1.7 % (0.0-10.0); %Lymphocytes 11.8 % (21.0-51.0); %Monocytes 11.2 % (0.0-10.0); %Neutrophils 73.4 % (42.0-75.0); Hematocrit 27.7 % (42.0-52.0); Hemoglobin 9.1 g/dL (14.0-18.0); Mean Corpuscular Hemoglobin 30.1 pg (27.0-31.0); Mean Corpuscular Volume 91.7 fL (78.0-98.0); Platelet Count 185 10x3/uL (130-400); Red Blood Cell (RBC) Count 3.02 mill/uL (4.70-6.10); White Blood Cell (WBC) Count 16.11 10x3/uL (4.8-10.8)
[2024-11-15 05:56] LABS: Anion Gap 18 mmol/L (10-20); BUN (Urea Nitrogen) 47 mg/dL (8.4-25.7); Calc. Creatinine Clearance 0 mL/min (70-130); Calcium 7.9 mg/dL (7.8-10.44); Carbon Dioxide 25 mmol/L (22-29); Chloride 101 mmol/L (98-107); Glucose 108 mg/dL (70-105); Potassium 4.6 mmol/L (3.5-5.1); Sodium 139 mmol/L (136-145)
[2024-11-15 12:13] VITALS: BMI 25.7
[2024-11-16 05:18] LABS: #Basophils 0.05 10x3/uL (0.0-0.2); #Eosinophils 0.29 10x3/uL (0.0-0.7); #Monocytes 1.43 10x3/uL (0.11-0.59); #Neutrophils 10.16 10x3/uL (1.40-6.50); %Basophils 0.4 % (0.0-1.0); %Eosinophils 2.1 % (0.0-10.0); %Lymphocytes 13.5 % (21.0-51.0); %Monocytes 10.2 % (0.0-10.0); %Neutrophils 72.7 % (42.0-75.0); Hematocrit 28.9 % (42.0-52.0); Hemoglobin 9.0 g/dL (14.0-18.0); Mean Corpuscular Hemoglobin 29.6 pg (27.0-31.0); Mean Corpuscular Volume 95.1 fL (78.0-98.0); Platelet Count 208 10x3/uL (130-400); Red Blood Cell (RBC) Count 3.04 mill/uL (4.70-6.10); White Blood Cell (WBC) Count 13.98 10x3/uL (4.8-10.8)
[2024-11-16 05:46] LABS: ALT (SGPT) 67 U/L (Less than 45); AST (SGOT) 53 U/L (11-34); Albumin 2.6 g/dL (3.1-4.5); Alkaline Phosphatase 193 U/L (40-110); Anion Gap 21 mmol/L (10-20); BUN (Urea Nitrogen) 57 mg/dL (8.4-25.7); Bilirubin, Total 0.8 mg/dL (0.3-1.2); Calc. Creatinine Clearance 11 mL/min (70-130); Calcium 7.9 mg/dL (7.8-10.44); Carbon Dioxide 22 mmol/L (22-29); Chloride 101 mmol/L (98-107); Globulin 2.9 g/dL (2.4-3.5); Glucose 141 mg/dL (70-105); Potassium 4.6 mmol/L (3.5-5.1); Sodium 139 mmol/L (136-145)
[2024-11-17 05:19] LABS: #Basophils 0.05 10x3/uL (0.0-0.2); #Eosinophils 0.28 10x3/uL (0.0-0.7); #Monocytes 1.60 10x3/uL (0.11-0.59); #Neutrophils 10.68 10x3/uL (1.40-6.50); %Basophils 0.3 % (0.0-1.0); %Eosinophils 1.9 % (0.0-10.0); %Lymphocytes 13.4 % (21.0-51.0); %Monocytes 10.9 % (0.0-10.0); %Neutrophils 72.5 % (42.0-75.0); Hematocrit 31.2 % (42.0-52.0); Hemoglobin 9.9 g/dL (14.0-18.0); Mean Corpuscular Hemoglobin 29.6 pg (27.0-31.0); Mean Corpuscular Volume 93.4 fL (78.0-98.0); Platelet Count 261 10x3/uL (130-400); Red Blood Cell (RBC) Count 3.34 mill/uL (4.70-6.10); White Blood Cell (WBC) Count 14.73 10x3/uL (4.8-10.8)
[2024-11-17] MEDS: READ PPD TEST SITE PO SCH (08:18)
[2024-11-17] MEDS: NIFEdipine XL 90 MG ER.TAB PO SCH (09:28)
[2024-11-17] MEDS ORDERED: Piperacillin/Tazobactam 2.25 GM in Sodium Chloride 0.9% 100 ML IVPB SCH (14:00)
[2024-11-17] MEDS: Amiodarone 200 MG TAB PO SCH (21:03)
[2024-11-18 05:20] LABS: #Basophils 0.06 10x3/uL (0.0-0.2); #Eosinophils 0.42 10x3/uL (0.0-0.7); #Monocytes 1.35 10x3/uL (0.11-0.59); #Neutrophils 9.24 10x3/uL (1.40-6.50); %Basophils 0.5 % (0.0-1.0); %Eosinophils 3.2 % (0.0-10.0); %Lymphocytes 15.1 % (21.0-51.0); %Monocytes 10.3 % (0.0-10.0); %Neutrophils 70.1 % (42.0-75.0); Hematocrit 31.4 % (42.0-52.0); Hemoglobin 9.5 g/dL (14.0-18.0); Mean Corpuscular Hemoglobin 29.3 pg (27.0-31.0); Mean Corpuscular Volume 96.9 fL (78.0-98.0); Platelet Count 259 10x3/uL (130-400); Red Blood Cell (RBC) Count 3.24 mill/uL (4.70-6.10); White Blood Cell (WBC) Count 13.17 10x3/uL (4.8-10.8)
[2024-11-18 05:40] LABS: ALT (SGPT) 28 U/L (Less than 45); AST (SGOT) 31 U/L (11-34); Albumin 2.6 g/dL (3.1-4.5); Alkaline Phosphatase 172 U/L (40-110); Anion Gap 19 mmol/L (10-20); BUN (Urea Nitrogen) 41 mg/dL (8.4-25.7); BUN/Creatinine Ratio 5.50; Bilirubin, Total 0.9 mg/dL (0.3-1.2); Calc. Creatinine Clearance 13 mL/min (70-130); Calcium 8.0 mg/dL (7.8-10.44); Carbon Dioxide 24 mmol/L (22-29); Chloride 101 mmol/L (98-107); Globulin 2.9 g/dL (2.4-3.5); Glucose 91 mg/dL (70-105); Potassium 4.7 mmol/L (3.5-5.1); Sodium 139 mmol/L (136-145)
[2024-11-18] MEDS ORDERED: Albumin 25% 25 GM (100 mL) BOT IVPB PRN (09:00)
[2024-11-18] MEDS ORDERED: Heparin 10,000 UNITS/ 10 ML VIAL CATH SCH (09:00)
[2024-11-18] MEDS ORDERED: Vancomycin Diaylsis Sliding Scale (Wt 71-99) FS SCH (09:30)
[2024-11-18] MEDS: VANCOMYCIN 1.75 GM/350 ML Premix BAG IVPB SCH (17:00)
[2024-11-18] MEDS: NIFEdipine XL 60 MG ER.TAB PO SCH (21:21)
[2024-11-19 05:29] LABS: #Basophils 0.08 10x3/uL (0.0-0.2); #Eosinophils 0.49 10x3/uL (0.0-0.7); #Monocytes 1.56 10x3/uL (0.11-0.59); #Neutrophils 10.21 10x3/uL (1.40-6.50); %Basophils 0.5 % (0.0-1.0); %Eosinophils 3.3 % (0.0-10.0); %Lymphocytes 17.2 % (21.0-51.0); %Monocytes 10.4 % (0.0-10.0); %Neutrophils 67.8 % (42.0-75.0); Hematocrit 31.3 % (42.0-52.0); Hemoglobin 10.1 g/dL (14.0-18.0); Mean Corpuscular Hemoglobin 30.2 pg (27.0-31.0); Mean Corpuscular Volume 93.7 fL (78.0-98.0); Platelet Count 281 10x3/uL (130-400); Red Blood Cell (RBC) Count 3.34 mill/uL (4.70-6.10); White Blood Cell (WBC) Count 15.05 10x3/uL (4.8-10.8)
[2024-11-19 06:00] LABS: Albumin 2.9 g/dL (3.1-4.5); Anion Gap 20 mmol/L (10-20); BUN (Urea Nitrogen) 37 mg/dL (8.4-25.7); BUN/Creatinine Ratio 6.12; Calc. Creatinine Clearance 15 mL/min (70-130); Calcium 8.4 mg/dL (7.8-10.44); Carbon Dioxide 23 mmol/L (22-29); Chloride 102 mmol/L (98-107); Glucose 83 mg/dL (70-105); Potassium 4.5 mmol/L (3.5-5.1); Sodium 140 mmol/L (136-145)
[2024-11-19] MEDS: Amiodarone 200 MG TAB PO SCH (08:32)
[2024-11-19] MEDS: HYDROcodone/Acetaminophen 5/325 mg Tablet PO PRN ×2 (11:58→16:17)
[2024-11-20 05:02] LABS: #Basophils 0.08 10x3/uL (0.0-0.2); #Eosinophils 0.48 10x3/uL (0.0-0.7); #Monocytes 1.03 10x3/uL (0.11-0.59); #Neutrophils 6.55 10x3/uL (1.40-6.50); %Basophils 0.8 % (0.0-1.0); %Eosinophils 4.6 % (0.0-10.0); %Lymphocytes 21.2 % (21.0-51.0); %Monocytes 9.9 % (0.0-10.0); %Neutrophils 63.0 % (42.0-75.0); Hematocrit 34.7 % (42.0-52.0); Hemoglobin 10.5 g/dL (14.0-18.0); Mean Corpuscular Hemoglobin 29.2 pg (27.0-31.0); Mean Corpuscular Volume 96.4 fL (78.0-98.0); Platelet Count 279 10x3/uL (130-400); Red Blood Cell (RBC) Count 3.60 mill/uL (4.70-6.10); White Blood Cell (WBC) Count 10.39 10x3/uL (4.8-10.8)
[2024-11-20 05:18] LABS: Albumin 3.0 g/dL (3.1-4.5); Anion Gap 18 mmol/L (10-20); BUN (Urea Nitrogen) 45 mg/dL (8.4-25.7); BUN/Creatinine Ratio 6.01; Calc. Creatinine Clearance 13 mL/min (70-130); Calcium 8.6 mg/dL (7.8-10.44); Carbon Dioxide 25 mmol/L (22-29); Chloride 100 mmol/L (98-107); Glucose 77 mg/dL (70-105); Potassium 4.6 mmol/L (3.5-5.1); Sodium 138 mmol/L (136-145)
[2024-11-21 05:42] LABS: #Basophils 0.11 10x3/uL (0.0-0.2); #Eosinophils 0.39 10x3/uL (0.0-0.7); #Monocytes 1.06 10x3/uL (0.11-0.59); #Neutrophils 8.23 10x3/uL (1.40-6.50); %Basophils 0.9 % (0.0-1.0); %Eosinophils 3.3 % (0.0-10.0); %Lymphocytes 16.4 % (21.0-51.0); %Monocytes 9.0 % (0.0-10.0); %Neutrophils 70.1 % (42.0-75.0); Hematocrit 32.9 % (42.0-52.0); Hemoglobin 10.1 g/dL (14.0-18.0); Mean Corpuscular Hemoglobin 29.1 pg (27.0-31.0); Mean Corpuscular Volume 94.8 fL (78.0-98.0); Platelet Count 297 10x3/uL (130-400); Red Blood Cell (RBC) Count 3.47 mill/uL (4.70-6.10); White Blood Cell (WBC) Count 11.76 10x3/uL (4.8-10.8)
[2024-11-21 06:11] LABS: Albumin 2.8 g/dL (3.1-4.5); Anion Gap 17 mmol/L (10-20); BUN (Urea Nitrogen) 51 mg/dL (8.4-25.7); BUN/Creatinine Ratio 7.04; Calc. Creatinine Clearance 12 mL/min (70-130); Calcium 8.4 mg/dL (7.8-10.44); Carbon Dioxide 22 mmol/L (22-29); Chloride 99 mmol/L (98-107); Glucose 126 mg/dL (70-105); Potassium 3.3 mmol/L (3.5-5.1); Sodium 135 mmol/L (136-145)
[2024-11-21 07:43] LABS: Vancomycin, Trough Less than 1.4 ug/mL
[2024-11-21] MEDS: Metoprolol Succinate XL 100 MG ER.TAB PO SCH (09:57)
[2024-11-21] MEDS: Vancomycin HCl 1.25 GM in Sodium Chloride 0.9% 250 ML 250 ML IVPB SCH (16:23)
[2024-11-22 04:28] LABS: #Basophils 0.12 10x3/uL (0.0-0.2); #Eosinophils 0.26 10x3/uL (0.0-0.7); #Monocytes 1.00 10x3/uL (0.11-0.59); #Neutrophils 10.57 10x3/uL (1.40-6.50); %Basophils 0.9 % (0.0-1.0); %Eosinophils 1.9 % (0.0-10.0); %Lymphocytes 11.0 % (21.0-51.0); %Monocytes 7.4 % (0.0-10.0); %Neutrophils 78.3 % (42.0-75.0); Hematocrit 35.1 % (42.0-52.0); Hemoglobin 10.8 g/dL (14.0-18.0); Mean Corpuscular Hemoglobin 29.5 pg (27.0-31.0); Mean Corpuscular Volume 95.9 fL (78.0-98.0); Platelet Count 298 10x3/uL (130-400); Red Blood Cell (RBC) Count 3.66 mill/uL (4.70-6.10); White Blood Cell (WBC) Count 13.50 10x3/uL (4.8-10.8)
[2024-11-22 04:41] LABS: Albumin 3.1 g/dL (3.1-4.5); Anion Gap 17 mmol/L (10-20); BUN (Urea Nitrogen) 28 mg/dL (8.4-25.7); BUN/Creatinine Ratio 6.41; Calc. Creatinine Clearance 20 mL/min (70-130); Calcium 9.0 mg/dL (7.8-10.44); Carbon Dioxide 17 mmol/L (22-29); Chloride 105 mmol/L (98-107); Glucose 111 mg/dL (70-105); Potassium 4.0 mmol/L (3.5-5.1); Sodium 135 mmol/L (136-145)
[2024-11-22] MEDS: Sodium Bicarbonate Tab 325 MG TAB PO SCH (09:26)
[2024-11-22] MEDS: Metoprolol Succinate XL 100 MG ER.TAB PO SCH (09:26)
[2024-11-23 04:33] LABS: #Basophils 0.10 10x3/uL (0.0-0.2); #Eosinophils 0.41 10x3/uL (0.0-0.7); #Monocytes 1.45 10x3/uL (0.11-0.59); #Neutrophils 9.06 10x3/uL (1.40-6.50); %Basophils 0.7 % (0.0-1.0); %Eosinophils 2.9 % (0.0-10.0); %Lymphocytes 21.9 % (21.0-51.0); %Monocytes 10.2 % (0.0-10.0); %Neutrophils 63.9 % (42.0-75.0); Hematocrit 34.2 % (42.0-52.0); Hemoglobin 10.4 g/dL (14.0-18.0); Mean Corpuscular Hemoglobin 29.9 pg (27.0-31.0); Mean Corpuscular Volume 98.3 fL (78.0-98.0); Platelet Count 324 10x3/uL (130-400); Red Blood Cell (RBC) Count 3.48 mill/uL (4.70-6.10); White Blood Cell (WBC) Count 14.18 10x3/uL (4.8-10.8)
[2024-11-23 04:53] LABS: Albumin 2.8 g/dL (3.1-4.5); Anion Gap 17 mmol/L (10-20); BUN (Urea Nitrogen) 45 mg/dL (8.4-25.7); BUN/Creatinine Ratio 8.64; Calc. Creatinine Clearance 16 mL/min (70-130); Calcium 8.4 mg/dL (7.8-10.44); Carbon Dioxide 22 mmol/L (22-29); Chloride 107 mmol/L (98-107); Glucose 80 mg/dL (70-105); Potassium 4.6 mmol/L (3.5-5.1); Sodium 141 mmol/L (136-145)
[2024-11-23 07:31] LABS: Vancomycin, Trough 11.2 ug/mL
[2024-11-23] MEDS ORDERED: Vancomycin 1 GM in Premix 1 BAG IVPB SCH (17:00)
[2024-11-24 05:14] LABS: #Basophils 0.09 10x3/uL (0.0-0.2); #Eosinophils 0.45 10x3/uL (0.0-0.7); #Monocytes 1.23 10x3/uL (0.11-0.59); #Neutrophils 6.52 10x3/uL (1.40-6.50); %Basophils 0.8 % (0.0-1.0); %Eosinophils 4.0 % (0.0-10.0); %Lymphocytes 26.1 % (21.0-51.0); %Monocytes 10.9 % (0.0-10.0); %Neutrophils 57.7 % (42.0-75.0); Hematocrit 34.1 % (42.0-52.0); Hemoglobin 10.2 g/dL (14.0-18.0); Mean Corpuscular Hemoglobin 29.4 pg (27.0-31.0); Mean Corpuscular Volume 98.3 fL (78.0-98.0); Platelet Count 305 10x3/uL (130-400); Red Blood Cell (RBC) Count 3.47 mill/uL (4.70-6.10); White Blood Cell (WBC) Count 11.30 10x3/uL (4.8-10.8)
[2024-11-24 05:34] LABS: ALT (SGPT) 15 U/L (Less than 45); AST (SGOT) 23 U/L (11-34); Albumin 2.9 g/dL (3.1-4.5); Alkaline Phosphatase 155 U/L (40-110); Anion Gap 17 mmol/L (10-20); BUN (Urea Nitrogen) 50 mg/dL (8.4-25.7); Bilirubin, Total 0.5 mg/dL (0.3-1.2); Calc. Creatinine Clearance 16 mL/min (70-130); Calcium 8.7 mg/dL (7.8-10.44); Carbon Dioxide 20 mmol/L (22-29); Chloride 108 mmol/L (98-107); Globulin 3.4 g/dL (2.4-3.5); Glucose 78 mg/dL (70-105); Potassium 4.8 mmol/L (3.5-5.1); Sodium 140 mmol/L (136-145)
[2024-11-24 15:44] VITALS: BP 127/66; TEMP 97.6
== END 2024-11-24 15:50 | disposition home or self-care (01) | DRG 233 ==
LOC: ERS 11:09 → ERHOLD 13:30 → 2NO 15:59 → CCU 11-04 08:12 → PCU 11-05 17:03 → CCU 11-07 14:21 → 2NO 11-12 06:44
PROVIDERS: ADMIT Family Medicine; ATTEND Internal Medicine
PROC: 4A023N7 Measurement of Cardiac Sampling and Pressure, Left Heart, Percutaneous Approach (ICD-10-PCS; principal; 2024-11-01)
PROC: B2111ZZ Fluoroscopy of Multiple Coronary Arteries using Low Osmolar Contrast (ICD-10-PCS; 2024-11-01)
PROC: B2151ZZ Fluoroscopy of Left Heart using Low Osmolar Contrast (ICD-10-PCS; 2024-11-01)
PROC: 3E03329 Introduction of Other Anti-infective into Peripheral Vein, Percutaneous Approach (ICD-10-PCS; 2024-11-01)
PROC: 3E033XZ Introduction of Vasopressor into Peripheral Vein, Percutaneous Approach (ICD-10-PCS; 2024-11-01)
PROC: 0210093 Bypass Coronary Artery, One Artery from Coronary Artery with Autologous Venous Tissue, Open Approach (ICD-10-PCS; 2024-11-04)
PROC: 02100Z9 Bypass Coronary Artery, One Artery from Left Internal Mammary, Open Approach (ICD-10-PCS; 2024-11-04)
PROC: 021 Heart and Great Vessels, Bypass (ICD-10-PCS; 2024-11-04)
PROC: 06BQ4ZZ Excision of Left Saphenous Vein, Percutaneous Endoscopic Approach (ICD-10-PCS; 2024-11-04)
PROC: 02L73CK Occlusion of Left Atrial Appendage with Extraluminal Device, Percutaneous Approach (ICD-10-PCS; 2024-11-04)
PROC: 5A1221Z Performance of Cardiac Output, Continuous (ICD-10-PCS; 2024-11-04)
PROC: B24BZZ4 Ultrasonography of Heart with Aorta, Transesophageal (ICD-10-PCS; 2024-11-04)
PROC: 4A133R1 Monitoring of Arterial Saturation, Peripheral, Percutaneous Approach (ICD-10-PCS; 2024-11-04)
PROC: 5A1D70Z Performance of Urinary Filtration, Intermittent, Less than 6 Hours Per Day (ICD-10-PCS; 2024-11-04)
PROC: 0JH63XZ Insertion of Tunneled Vascular Access Device into Chest Subcutaneous Tissue and Fascia, Percutaneous Approach (ICD-10-PCS; 2024-11-13)
PROC: 05HM33Z Insertion of Infusion Device into Right Internal Jugular Vein, Percutaneous Approach (ICD-10-PCS; 2024-11-13)
PROC: B5131ZA Fluoroscopy of Right Jugular Veins using Low Osmolar Contrast, Guidance (ICD-10-PCS; 2024-11-13)
PROC: 5A1D70Z Performance of Urinary Filtration, Intermittent, Less than 6 Hours Per Day (ICD-10-PCS; 2024-11-23)
DX: I21.4 Non-ST elevation (NSTEMI) myocardial infarction (principal); G93.41 Metabolic encephalopathy; I50.23 Acute on chronic systolic (congestive) heart failure; J18.9 Pneumonia, unspecified organism; K72.00 Acute and subacute hepatic failure without coma; N18.6 End stage renal disease; I13.0 Hypertensive heart and chronic kidney disease with heart failure and stage 1 through stage 4 chronic kidney disease, or unspecified chronic kidney disease; J44.1 Chronic obstructive pulmonary disease with (acute) exacerbation; N17.9 Acute kidney failure, unspecified; E87.21 Acute metabolic acidosis; D62 Acute posthemorrhagic anemia; E87.29 Other acidosis; I97.190 Other postprocedural cardiac functional disturbances following cardiac surgery; N39.0 Urinary tract infection, site not specified; T82.7XXA Infection and inflammatory reaction due to other cardiac and vascular devices, implants and grafts, initial encounter; I95.9 Hypotension, unspecified; E78.5 Hyperlipidemia, unspecified; E87.5 Hyperkalemia; R74.01 Elevation of levels of liver transaminase levels; T46.2X1A Poisoning by other antidysrhythmic drugs, accidental (unintentional), initial encounter; K59.00 Constipation, unspecified; F17.200 Nicotine dependence, unspecified, uncomplicated; I25.5 Ischemic cardiomyopathy; I25.10 Atherosclerotic heart disease of native coronary artery without angina pectoris; Z98.890 Other specified postprocedural states; Z88.8 Allergy status to other drugs, medicaments and biological substances; Z98.1 Arthrodesis status; Z79.82 Long term (current) use of aspirin; E88.09 Other disorders of plasma-protein metabolism, not elsewhere classified; D72.829 Elevated white blood cell count, unspecified; Z79.899 Other long term (current) drug therapy
CPT/HCPCS: 36415; 36416; 36600; 71045; 71046; 71275; 76700; 80048; 80053; 80061; 80069; 80076; 80202; 81001; 82140; 82550; 82570; 82728; 82805; 83036; 83540; 83550; 83605; 83735; 83880; 84100; 84145; 84156; 84300; 84484; 84540; 85025; 85027; 85610; 85730; 86580; 86704; 86706; 86803; 86850; 86900; 86901; 87040; 87071; 87077; 87149; 87340; 87428; 90935; 93005; 93010; 93306; 93459; 93798; 94002; 94640; 94660; 94760; 96372; 96374; 96375; 97139; 99152; 99153; A4311; A4648; A6258; C1750; C1751; C1769; C1887; C1889; C1894; G0257; J0153; J0165; J0169; J0282; J0360; J0461; J0665; J0690; J0696; J1250; J1642; J1644; J1650; J1815; J1940; J2003; J2250; J2270; J2440; J2543; J2550; J2704; J2720; J2916; J2919; J3010; J3373; J3375; J3475; J3480; J7030; J7050; J7070; J7611; J7999; P9045; P9047; Q5105; Q9967; S0017